=== PATIENT | female | born 1960 | race Caucasian/White ===

== ENCOUNTER 2020-02-16 10:12 | Outpatient (CLI) | payer OTHER, SELFPAY ==
[2020-02-16 10:29] LABS: Basophils Percent Auto 0.6 % (0.2-1.2); Eosinophils Absolute Auto 0.3 K/mm3 (0-0.3); Eosinophils Percent Auto 4.1 % (0-4.4); Hematocrit 41.4 % (37.0-47.0); Hemoglobin 13.3 g/dL (12.0-15.0); Immature Granulocyte Absolute 0.02 K/mm3 (0.00-0.031); Immature Granulocyte Percent A 0.3 % (0-0.5); Lymphocytes Absolute Auto 2.01 K/mm3 (0.9-3.2); Lymphocytes Percent Auto 31.6 % (18.3-44.2); Mean Corpuscular HGB Conc 32.1 g/dl (32-36); Mean Corpuscular Hemoglobin 28.1 pg (26-34); Mean Corpuscular Volume 87.3 fl (80-100); Mean Platelet Volume 8.4 fl (7.4-10.4); Monocytes Absolute Auto 0.5 K/mm3 (0.1-0.6); Monocytes Percent Auto 8.2 % (2.6-8.5); Neutrophils Absolute Auto 3.5 K/mm3 (1.3-6.7); Neutrophils Percent Auto 55.2 % (45.5-73.1); Platelet Count Result 164 k/mm3 (150-375); Red Blood Count 4.74 M/mm3 (4.2-5.4); Red Cell Distribution Width 14.7 % (11.5-14.5); White Blood Count 6.4 K/mm3 (4.5-10.0)
[2020-02-16 10:40] LABS: Blood Urea Nitrogen 14 mg/dL (7-17); Calcium 9.1 mg/dL (8.4-10.2); Carbon Dioxide 33 mmol/L (22-30); Chloride 100 mmol/L (98-107); Cholesterol 159 mg/dL (0-200); Estimated Glomerular Filt Rate > 60; Glucose 188 mg/dL (65-105); HDL Direct 31 mg/dL; Potassium 4.2 mmol/L (3.4-5.0); Sodium 138 mmol/L (137-145); Triglycerides 232 mg/dL (<150)
[2020-02-16 10:54] LABS: LDL Cholesterol Direct 86 mg/dL
== END 2020-02-16 10:13 | disposition home or self-care (01) ==
PROVIDERS: PCP Family Medicine; Visit Provider Family Medicine
DX: R60.0 Localized edema (principal); E78.2 Mixed hyperlipidemia; E66.01 Morbid (severe) obesity due to excess calories; Z68.43 Body mass index [BMI] 50.0-59.9, adult
CPT/HCPCS: 36415; 80048; 80061; 84443; 85025

== ENCOUNTER 2020-04-03 16:41 | Outpatient (CLI) | payer OTHER, SELFPAY ==
[2020-04-03 17:20] LABS: Hematocrit 41.9 % (37.0-47.0); Hemoglobin 13.7 g/dL (12.0-15.0); Mean Corpuscular HGB Conc 32.7 g/dl (32-36); Mean Corpuscular Hemoglobin 28.2 pg (26-34); Mean Corpuscular Volume 86.2 fl (80-100); Mean Platelet Volume 8.5 fl (7.4-10.4); Platelet Count Result 212 k/mm3 (150-375); Red Blood Count 4.86 M/mm3 (4.2-5.4); White Blood Count 6.6 K/mm3 (4.5-10.0)
[2020-04-03 17:32] LABS: Alanine Aminotransferase 42 U/L (4-35); Albumin Level 4.3 g/dL (3.5-5.1); Alkaline Phosphatase 91 U/L (38-126); Aspartate Amino Transferase 42 U/L (14-36); Bilirubin,Total 0.5 mg/dL (0.2-1.3); Blood Urea Nitrogen 14 mg/dL (7-17); Calcium 9.5 mg/dL (8.4-10.2); Carbon Dioxide 31 mmol/L (22-30); Chloride 98 mmol/L (98-107); Estimated Glomerular Filt Rate > 60; Glucose 113 mg/dL (65-105); Potassium 3.6 mmol/L (3.4-5.0); Sodium 137 mmol/L (137-145)
[2020-04-07 14:27] LABS: Quantiferon TB Plus, 1T Negative
[2020-04-07 14:28] LABS: NIL 0.03 IU/mL; TB1-NIL 0.01 IU/mL
[2020-04-07 14:30] LABS: TB2-NIL 0.01 IU/mL
== END 2020-04-03 16:42 | disposition home or self-care (01) ==
LOC: ANHLAB 16:44
PROVIDERS: PCP Family Medicine
DX: L40.0 Psoriasis vulgaris (principal)
CPT/HCPCS: 36415; 80053; 85027; 86480

== ENCOUNTER 2021-04-06 16:52 | Emergency (ER) | payer OTHER, SELFPAY ==
--- NOTE | ~2021-04-06 | XR_ITS ---
EXAMINATION: XR hip RT min 3V w AP pelvis, XR femur RT min 2V DATE: 04/06/2021 17:40 INDICATION: Posterior right femoral pain post fall. TECHNIQUE: 1. Anteroposterior view of the pelvis and anteroposterior, frog leg and cross-table lateral views of the right hip were obtained. 2. AP and lateral views of the right femur were obtained on overlapping proximal and distal images. COMPARISON: None. FINDINGS: Bone alignment is normal. No fracture. Mild polyarticular osteoarthritis at the right hip, right sacr oiliac joint and patellofemoral compartment of the right knee. Additional mild to moderate lower lumb ar predominant facet osteoarthritis. Left hip and sacroiliac joint spaces are normal. No right knee j oint effusion. Soft tissues are unremarkable. IMPRESSION: 1. No acute osseous abnormality at the pelvis, right hip or femur. 2. Polyarticular osteoarthritis, mild to moderate in the lumbar facet joints and mild at the right hi p, sacroiliac and patellofemoral articulations. Reviewed, dictated and finalized at location A. IMPRESSION: 1. No acute osseous abnormality at the pelvis, right hip or femur. 2. Polyarticular osteoarthritis, mild to moderate in the lumbar facet joints an d mild at the right hip, sacroiliac and patellofemoral articulations.
[2021-04-06 16:51] VITALS: BP 144/56; PULSE 74; RESP 18; TEMP 36.3; O2SAT 97
[2021-04-06] MEDS: HYDROcodone/acetaminophen (*CRX) 5-325 MG TABLET 1 TAB PO (17:43)
--- NOTE | 2021-04-06 18:07 | ED.GENADULT ---
HPI - General Adult General Chief complaint: Extremity Injury, Lower Stated complaint: groin/leg injury Time Seen by Provider: 04/06/21 17:10 Source: patient and RN notes reviewed Mode of arrival: ambulatory Limitations: no limitations History of Present Illness HPI narrative: Patient 60-year-old female who presents per EMS after having done the splits on a slick surface just prior to arrival patient notes that aching pain worse with activity and movement pain is localized to the posterior right thigh patient denies other injuries or complaints and on arrival is not distressed Related Data Home Medications Medication Instructions Recorded Confirmed risankizumab-rzaa [Skyrizi] mg SUBCUT 04/06/21 Allergies Allergy/AdvReac Type Severity Reaction Status Date / Time No Known Allergies Allergy Verified 04/06/21 16:59 Review of Systems Review of Systems: All systems reviewed & are unremarkable except as noted in HPI and below PMFSH Past Medical History Medical History (Updated 04/06/21 @ 18:11 by Bob Patel PA-C) Apnea Edema Mixed hyperlipidemia Obesity due to excess calories Psoriasis Subconjunctival hematoma Surgical History Surgical History (Updated 04/06/21 @ 18:09 by Bob Patel PA-C) Previous section Family History Family History Mother Hypertension Sibling Carcinoma of colon Family history of cardiovascular disease Father Family history of coronary artery disease Diabetes mellitus Acute myocardial infarction Other Cerebrovascular accident Social History Social History Smoking status: Former smoker Smoking end date: 09/22/10 Alcohol intake: current Exam Narrative: Exam Narrative: GENERAL: Well-appearing, well-nourished, and in no acute distress. HEAD: Normocephalic, atraumatic. EYES: PERRLA and EOMI. ENT: Nares clear, no rhinorrhea or epistaxis. Mucous membranes moist. CHEST: Clear to auscultation. No respiratory distress. No wheezes rales or rhonchi HEART: Regular rate and rhythm. No murmur heard. Normal peripheral pulses. ABDOMEN: Soft, nontender, nondistended EXTREMITIES: Normal range of motion. No edema. Tenderness posterior right thigh no deformity noted SKIN: Warm, dry, no rash. NEURO: No focal deficits. Alert and oriented x3. Cranial nerves II through XII grossly intact. Neurovascularly intact PSYCH: Normal mood and affect. Course Course Emergency Course: Patient evaluated the emergency department no concerning findings will be discharged home with outpatient follow-up felt appropriate for outpatient reevaluation provided with results of her x-ray imaging Vital Signs Vital signs: Vital Signs Temperature 97.4 F L 04/06/21 16:51 Pulse Rate 74 04/06/21 16:51 Respiratory Rate 18 04/06/21 16:51 Blood Pressure 144/56 H 04/06/21 16:51 Pulse Oximetry 97 04/06/21 16:51 Temperature 97.4 F L 04/06/21 16:51 Pulse Rate 74 04/06/21 16:51 Respiratory Rate 18 04/06/21 16:51 Blood Pressure 144/56 H 04/06/21 16:51 Pulse Oximetry 97 04/06/21 16:51 Medical Decision Making MDM Narrative Medical decision making narrative: Patients injury or pain is consistent with musculoskeletal etiology. No signs of neurological or vascular compromise on exam. Compartments and tisues are soft without signs of compartment syndrome. Pain is felt appropriate for further evaluation on an outpatient basis. Vital Signs Vital Signs: Vital Signs Temperature 97.4 F L 04/06/21 16:51 Pulse Rate 74 04/06/21 16:51 Respiratory Rate 18 04/06/21 16:51 Blood Pressure 144/56 H 04/06/21 16:51 Pulse Oximetry 97 04/06/21 16:51 Temperature 97.4 F L 04/06/21 16:51 Pulse Rate 74 04/06/21 16:51 Respiratory Rate 18 04/06/21 16:51 Blood Pressure 144/56 H 04/06/21 16:51 Pulse Oximetry 97 04/06/21 16:51 Imaging
[2021-04-06 18:32] VITALS: BP 135/60; PULSE 72; RESP 18; O2SAT 97
== END 2021-04-06 18:57 | disposition home or self-care (01) ==
PROVIDERS: Emergency Provider Emergency Medicine; PCP Family Medicine
DX: M79.651 Pain in right thigh (principal); R06.81 Apnea, not elsewhere classified; E78.2 Mixed hyperlipidemia; E66.09 Other obesity due to excess calories; Z68.43 Body mass index [BMI] 50.0-59.9, adult; L40.9 Psoriasis, unspecified; Z87.891 Personal history of nicotine dependence; W01.0XXA Fall on same level from slipping, tripping and stumbling without subsequent striking against object, initial encounter; M16.11 Unilateral primary osteoarthritis, right hip; M46.1 Sacroiliitis, not elsewhere classified; M17.11 Unilateral primary osteoarthritis, right knee
CPT/HCPCS: 73502; 73552; 99283; A9270

== ENCOUNTER 2021-04-14 10:17 | Outpatient (CLI) | payer OTHER, SELFPAY ==
--- NOTE | ~2021-04-14 | XR_ITS ---
XR lumbar spine 2-3V DATE: 04/14/2021 10:35 INDICATION: Ground-level fall one day ago. Right back pain radiating to leg TECHNIQUE: AP, lateral, coned lateral lumbosacral views COMPARISON: None FINDINGS: There is grade 1 anterolisthesis at L4-5, likely due to degenerative change at the apophyse al joints. There is mild degenerative disc disease of the lumbar spine. No fracture or bone destruction is evident. The lumbar pedicles are intact. The sacroiliac joints are intact. Surgical clips overlie the right upper quadrant, likely due to cholecystectomy. IMPRESSION: Multilevel mild degenerative disc disease of lumbar spine Grade 1 anterolisthesis at L4-5 due to degenerative change at the apophyseal joints Reviewed, dictated and finalized at location A. IMPRESSION: Multilevel mild degenerative disc disease of lumbar spine Grade 1 anterolisthesis at L4-5 due to degenerative change at the apophyseal south ints
== END 2021-04-14 10:18 | disposition home or self-care (01) ==
LOC: ANHIMG 10:19
PROVIDERS: PCP Family Medicine; Visit Provider Nurse Practitioner Family
DX: M54.5 Low back pain (principal); M51.36 Other intervertebral disc degeneration, lumbar region; M43.16 Spondylolisthesis, lumbar region
CPT/HCPCS: 72100

== ENCOUNTER 2021-08-08 10:30 | Outpatient (CLI) | payer OTHER, SELFPAY ==
[2021-08-08 11:08] LABS: Basophils Absolute Auto 0.1 K/mm3 (0.0-0.1); Basophils Percent Auto 0.8 % (0.2-1.2); Eosinophils Absolute Auto 0.8 K/mm3 (0-0.3); Eosinophils Percent Auto 9.9 % (0-4.4); Hematocrit 41.2 % (37.0-47.0); Hemoglobin 12.9 g/dL (12.0-15.0); Immature Granulocyte Absolute 0.02 K/mm3 (0.00-0.031); Immature Granulocyte Percent A 0.3 % (0-0.5); Lymphocytes Absolute Auto 2.31 K/mm3 (0.9-3.2); Lymphocytes Percent Auto 29.4 % (18.3-44.2); Mean Corpuscular HGB Conc 31.3 g/dl (32-36); Mean Corpuscular Hemoglobin 26.2 pg (26-34); Mean Corpuscular Volume 83.7 fl (80-100); Mean Platelet Volume 8.2 fl (7.4-10.4); Monocytes Absolute Auto 0.8 K/mm3 (0.1-0.6); Monocytes Percent Auto 9.8 % (2.6-8.5); Neutrophils Absolute Auto 3.9 K/mm3 (1.3-6.7); Neutrophils Percent Auto 49.8 % (45.5-73.1); Platelet Count Result 184 k/mm3 (150-375); Red Blood Count 4.92 M/mm3 (4.2-5.4); Red Cell Distribution Width 17.3 % (11.5-14.5); White Blood Count 7.9 K/mm3 (4.5-10.0)
[2021-08-08 11:21] LABS: Alanine Aminotransferase 20 U/L (4-35); Albumin Level 4.2 g/dL (3.5-5.1); Alkaline Phosphatase 80 U/L (38-126); Anion Gap 6 mmol/L (8-16); Aspartate Amino Transferase 21 U/L (14-36); Bilirubin,Total 0.5 mg/dL (0.2-1.3); Blood Urea Nitrogen 17 mg/dL (7-17); Calcium 9.5 mg/dL (8.4-10.2); Carbon Dioxide 29 mmol/L (22-30); Chloride 105 mmol/L (98-107); Cholesterol 133 mg/dL (0-200); Estimated Glomerular Filt Rate > 60; Glucose 147 mg/dL (65-110); HDL Direct 36 mg/dL; Potassium 4.4 mmol/L (3.4-5.0); Sodium 140 mmol/L (137-145); Triglycerides 194 mg/dL (<150)
[2021-08-08 11:32] LABS: LDL Cholesterol Direct 67 mg/dL
[2021-08-08 11:33] LABS: Creatinine Urine 86.1 mg/dL
[2021-08-08 11:47] LABS: Vitamin D 25 Hydroxy 15.1 ng/mL
[2021-08-08 12:34] LABS: Microalbumin Urine Random > 1140.0 mg/L (0-16.7)
[2021-08-23 15:41] LABS: NIL 0.02 IU/mL; Quantiferon TB Plus, 1T NEGATIVE
== END 2021-08-08 10:31 | disposition home or self-care (01) ==
LOC: ANHLAB 10:32
PROVIDERS: PCP Family Medicine; Referring Provider Dermatology; Visit Provider Nurse Practitioner Family
DX: E55.9 Vitamin D deficiency, unspecified (principal); E78.2 Mixed hyperlipidemia; E11.65 Type 2 diabetes mellitus with hyperglycemia; Z13.29 Encounter for screening for other suspected endocrine disorder; G47.33 Obstructive sleep apnea (adult) (pediatric); L40.0 Psoriasis vulgaris
CPT/HCPCS: 36415; 80053; 80061; 82043; 82306; 84443; 85025; 86480

== ENCOUNTER 2022-05-20 09:09 | Outpatient (CLI) | payer OTHER, SELFPAY ==
[2022-05-20 09:37] LABS: Hematocrit 41.4 % (37.0-47.0); Hemoglobin 12.6 g/dL (12.0-15.0); Mean Corpuscular HGB Conc 30.4 g/dl (32-36); Mean Platelet Volume 8.4 fl (7.4-10.4); Platelet Count Result 194 k/mm3 (150-375); Red Blood Count 5.05 M/mm3 (4.2-5.4); Red Cell Distribution Width 18.9 % (11.5-14.5); White Blood Count 7.2 K/mm3 (4.5-10.0)
[2022-05-20 09:48] LABS: Alanine Aminotransferase 19 U/L (6-35); Albumin Level 4.1 g/dL (3.5-5.1); Alkaline Phosphatase 88 U/L (38-126); Anion Gap 9 mmol/L (8-16); Aspartate Amino Transferase 22 U/L (14-36); Bilirubin,Total 0.6 mg/dL (0.2-1.3); Blood Urea Nitrogen 17 mg/dL (7-17); Calcium 9.2 mg/dL (8.4-10.2); Carbon Dioxide 30 mmol/L (22-30); Chloride 99 mmol/L (98-107); Cholesterol 135 mg/dL (0-200); Estimated Glomerular Filt Rate > 60; Glucose 132 mg/dL (65-110); HDL Direct 35 mg/dL; Potassium 4.2 mmol/L (3.4-5.0); Sodium 138 mmol/L (137-145); Triglycerides 198 mg/dL (<150)
[2022-05-20 09:59] LABS: LDL Cholesterol Direct 58 mg/dL
[2022-05-20 10:29] LABS: Vitamin D 25 Hydroxy 20.7 ng/mL
[2022-05-20 10:37] LABS: Creatinine Urine 154.2 mg/dL
[2022-05-20 12:32] LABS: Microalbumin Urine Random > 1140.0 mg/L (0-16.7)
== END 2022-05-20 09:10 | disposition home or self-care (01) ==
LOC: ANHLAB 09:11
PROVIDERS: PCP Family Medicine; Visit Provider Nurse Practitioner Family
DX: E55.9 Vitamin D deficiency, unspecified (principal); E11.65 Type 2 diabetes mellitus with hyperglycemia; Z13.29 Encounter for screening for other suspected endocrine disorder; E78.2 Mixed hyperlipidemia; G47.33 Obstructive sleep apnea (adult) (pediatric)
CPT/HCPCS: 36415; 80053; 80061; 82043; 82306; 84443; 85027

== ENCOUNTER 2022-10-10 14:07 | Outpatient (CLI) | payer OTHER, SELFPAY ==
[2022-10-10 15:14] LABS: Hematocrit 40.3 % (37.0-47.0); Hemoglobin 12.8 g/dL (12.0-15.0); Mean Corpuscular HGB Conc 31.8 g/dl (32-36); Mean Corpuscular Hemoglobin 27.4 pg (26-34); Mean Corpuscular Volume 86.3 fl (80-100); Mean Platelet Volume 8.7 fl (7.4-10.4); Platelet Count Result 230 k/mm3 (150-375); Red Blood Count 4.67 M/mm3 (4.2-5.4); Red Cell Distribution Width 16.9 % (11.5-14.5); White Blood Count 7.4 K/mm3 (4.5-10.0)
[2022-10-10 15:30] LABS: Anion Gap 6 mmol/L (8-16); Blood Urea Nitrogen 15 mg/dL (7-17); Carbon Dioxide 31 mmol/L (22-30); Chloride 103 mmol/L (98-107); Estimated Glomerular Filt Rate > 60; Glucose 98 mg/dL (65-110); Sodium 140 mmol/L (137-145)
[2022-10-10 15:44] LABS: Alanine Aminotransferase 22 U/L (6-35); Albumin Level 4.2 g/dL (3.5-5.1); Alkaline Phosphatase 88 U/L (38-126); Anion Gap 6 mmol/L (8-16); Aspartate Amino Transferase 22 U/L (14-36); Blood Urea Nitrogen 15 mg/dL (7-17); Carbon Dioxide 30 mmol/L (22-30); Chloride 104 mmol/L (98-107); Estimated Glomerular Filt Rate > 60; Glucose 98 mg/dL (65-110); Potassium 4.1 mmol/L (3.4-5.0); Sodium 140 mmol/L (137-145)
[2022-10-10 15:50] LABS: Bilirubin,Total 0.4 mg/dL (0.2-1.3)
[2022-10-14 11:43] LABS: NIL 0.02 IU/mL; Quantiferon TB Plus, 1T NEGATIVE (NEGATIVE); TB1-NIL 0.01 IU/mL; TB2-NIL 0.01 IU/mL
== END 2022-10-10 14:08 | disposition home or self-care (01) ==
LOC: ANHLAB 14:11
PROVIDERS: PCP Nurse Practitioner Family; Visit Provider Dermatology
DX: L40.0 Psoriasis vulgaris (principal); R25.2 Cramp and spasm; E55.9 Vitamin D deficiency, unspecified
CPT/HCPCS: 36415; 80048; 80053; 82306; 85027; 86480

== ENCOUNTER 2023-03-10 13:46 | Outpatient (CLI) | payer OTHER, SELFPAY ==
--- NOTE | 2023-03-10 | ECHO_ITS ---
Patient Info Name: Marie Jimenez Age: 62 years : 1960 Gender: Female Ht: 57 in Wt: 250 lbs BSA: 2.22 m2 HR: 72 bpm BP: 148 / 76 mmHg Technical Quality: Fair Exam Date: 03/10/2023 2:15 PM Exam Location: [facility] Patient Status: Outpatient Admit Date: 03/10/2023 Staff Ordering Physician: Alona Armstrong Technology Assistant: Ilsa Pichardo RDCS Attending Provider: Alona Armstrong Referring Physician: Patti ESPINO; Exam Type: CA echo doppler color flow Study Info Indications I10 - Essential (primary) hypertension Complete two-dimensional, color flow and Doppler transthoracic echocardiogram is performed. Summary 1. Complete two-dimensional, color flow and Doppler transthoracic echocardiogram is performed. 2. Left ventricular chamber dimension is normal. 3. Left ventricular systolic function is normal, estimated at 60-65%. 4. The left ventricular diastolic function is grade I diastolic dysfunction. 5. E/e' 12 is mildly elevated. 6. Global longitudinal strain is normal at -17.4%. 7. No pulmonary hypertension, estimated pulmonary arterial systolic pressure is 30 mmHg. Left Ventricle E/e' 12 is mildly elevated. Global longitudinal strain is normal at -17.4%. Left ventricular chamber dimension is normal. Left ventricular systolic function is normal, estimated at 60-65%. The left ventricular diastolic function is grade I diastolic dysfunction. Right Ventricle Right ventricular chamber dimension is normal. Right ventricular systolic function is normal. Left Atria Left atrial chamber dimension is normal. Right Atria Right atrial chamber dimension is normal. Aortic Valve The aortic valve is trileaflet. There is no aortic valve stenosis. There is no aortic valve regurgitation. Pulmonic Valve There is no pulmonic regurgitation. Mitral Valve There is no mitral valve stenosis. There is no mitral valve regurgitation. Tricuspid Valve There is no tricuspid valve regurgitation. No pulmonary hypertension, estimated pulmonary arterial systolic pressure is 30 mmHg. Pericardium/Pleural There is no pericardial effusion. Inferior Vena Cava Normal inferior vena cava with >50% collapse upon inspiration consistent with normal right atrial pressure, 5 mmHg. Aorta The aortic root size at the sinus of Valsalva is normal. Left Ventricular Outflow Tract Name Value Normal LVOT 2D LVOT Diameter 1.9 cm LVOT Doppler LVOT Peak Gradient 6 mmHg LVOT Mean Gradient 3 mmHg LVOT VTI 23 cm LVOT VTI/AV VTI Ratio 0.8 LVOT Stroke Volume 68 ml LVOT CO 4.4 l/min LVOT CI 2.0 l/min/m2 Pulmonic Valve Name Value Normal RVOT Doppler RVOT Peak Gradient 2 mmHg PV Doppler
== END 2023-03-10 13:47 | disposition home or self-care (01) ==
LOC: ANHCARD 13:48
PROVIDERS: PCP Nurse Practitioner Family; Visit Provider Nurse Practitioner Family
DX: E78.2 Mixed hyperlipidemia (principal); I10 Essential (primary) hypertension; R07.89 Other chest pain
CPT/HCPCS: 93306

== ENCOUNTER 2023-04-21 12:12 | Emergency (ER) | payer OTHER, SELFPAY ==
--- NOTE | ~2023-04-21 | XR_ITS ---
EXAMINATION: XR ankle LT min 3V DATE: 04/21/2023 12:55 INDICATION: Lateral left ankle pain TECHNIQUE: Anteroposterior, oblique, mortise, and lateral views of the left ankle were obtained. COMPARISON: None. FINDINGS: Alignment is normal. No fracture. Joint spaces are well maintained. Moderate-sized Achilles calcanea l spur. No ankle joint effusion. Mild diffuse soft tissue swelling with subcutaneous edema about the distal calf, ankle and over the dorsum of the foot. IMPRESSION: 1. No acute osseous abnormality. Reviewed, dictated and finalized at location B.
[2023-04-21 12:35] VITALS: BP 137/72; PULSE 85; RESP 16; TEMP 36.2; O2SAT 97
--- NOTE | 2023-04-21 12:43 | ED.GENADULT ---
HPI - General Adult General Chief complaint: Extremity Injury, Lower Stated complaint: Left foot injury Time Seen by Provider: 04/21/23 12:43 Source: patient, RN notes reviewed and old records reviewed Mode of arrival: ambulatory (placed in wheelchair on arrival) Limitations: no limitations History of Present Illness HPI narrative: . 63 year old female presents to [facility] for rehabilitation care with 3-4 days of increased discomfort to the lateral posterior ankle behind her calcaneus bone with inability to apply kary to heel. Patient reports no known injury to her left lateral ankle, reports chronic swelling to her feet and ankles no increase in swelling noted. Patient reports that she has been walking on her toes of her left foot is unable to bear weight to posterior aspect of left foot without extreme discomfort. Patient reports no pain at rest but with movement of ankle and attempting to apply pressure to posterior foot pain is 9/10. Patient reports that she has been taking Ibuprofen for her discomfort. MD complaint: left posterior lateral ankle pain Onset (ago): day(s) (3-4 days) Location: left and lower extremity (posterior lateral ankle) Pain Consistency: intermittent and other (related to activity and movement of left ankle) Treatments prior to arrival: NSAID Related Data Home Medications Medication Instructions Recorded Confirmed risankizumab-rzaa 150 mg/mL 150 mg subcut [id number] 04/21/23 04/21/23 subcutaneous pen injector (Skyrizi) Allergies Allergy/AdvReac Type Severity Reaction Status Date / Time No Known Allergies Allergy Verified 04/21/23 12:31 Review of Systems Review of Systems: CONSTITUTIONAL: Denies fever, chills, or sweats. EYES: Denies visual changes, redness, or discharge. ENT: Denies rhinorrhea, congestion, sore throat, or otalgia. CARDIOVASCULAR: Denies chest pain, palpitations, positive for chronic edema to bilateral feet. RESPIRATORY: Denies cough or dyspnea. GASTROINTESTINAL: Denies abdominal pain, nausea, vomiting, or diarrhea. GENITOURINARY: Denies dysuria or hematuria. SKIN: Denies rash or itching.positive for left posterior MUSCULOSKELETAL: Denies back pain, positive for left lateral posterior ankle pain increases with movement and attempting to apply weight on posterior foot. or myalgia. NEUROLOGIC: Denies headache, numbness, or weakness. PSYCHIATRIC:Positive for history of anxiety or depression. All systems reviewed & are unremarkable except as noted in HPI and below PMFSH Past Medical History Medical History Abnormal CT of the abdomen Acute bronchitis due to other specified organisms Acute sinusitis, unspecified Acute suppurative otitis media of right ear without spontaneous rupture of tympanic membrane Acute upper respiratory infection, unspecified Apnea Bilateral primary osteoarthritis of knee Bilateral swelling of feet BMI 50.0-59.9, adult Body mass index (BMI) of 50-59.9 in adult (07/10/17) Candidiasis of skin Dietary counseling and surveillance (02/24/18) Edema Edema of both feet Elevated fasting glucose Elevated sed rate Encounter for screening for respiratory tuberculosis (09/12/15) Encounter for surgical aftercare following surgery of digestive system Hyperglycemia Memory loss Mixed hyperlipidemia Morbid obesity due to excess calories Obesity due to excess calories Orthopnea Other psoriatic arthropathy Post-nasal drainage Prediabetes Psoriasis Routine physical examination Screening for thyroid disorder Sleep trouble Sore throat Stress Subconjunctival hematoma Symptomatic cholelithiasis Upper abdominal mass Vitamin D deficiency Surgical History Surgical History H/O gynecological procedure diagnostic hysteroscopy; uterine curetting; hysteroscopic polyectomy History of tubal ligation laparoscopic tubal ligation; NovaSure endometrial ablation Previous back surgery fatty t
== END 2023-04-21 13:40 | disposition home or self-care (01) ==
PROVIDERS: Emergency Provider Registered Nurse; PCP Family Medicine
DX: M77.32 Calcaneal spur, left foot (principal); M25.572 Pain in left ankle and joints of left foot; Z87.891 Personal history of nicotine dependence; E78.2 Mixed hyperlipidemia; E66.01 Morbid (severe) obesity due to excess calories; Z68.43 Body mass index [BMI] 50.0-59.9, adult
CPT/HCPCS: 73610; 99213; G0463

== ENCOUNTER 2023-05-02 08:00 | Outpatient (CLI) | payer OTHER, SELFPAY ==
--- NOTE | ~2023-05-02 | MM_ITS ---
EXAMINATION: MM screening kelsi BI w annette HISTORY: Screening mammogram TECHNIQUE: Craniocaudal and mediolateral oblique 3-D tomosynthesis images were obtained and synthetic 2-D images were generated. CAD analysis was submitted and interpreted. COMPARISON: 11/30/2013, 09/28/2010 BREAST PARENCHYMAL COMPOSITION: The breasts are almost entirely fatty. FINDINGS: No suspicious mass, calcification, or architectural distortion are identified in either glenn ast to suggest malignancy. There has been no suspicious interval change. IMPRESSION: 1. No mammographic evidence of malignancy. 2. Recommend routine screening mammography in one year. BI-RADS Category 1: Negative Reviewed, dictated and finalized at location A.
== END 2023-05-02 08:01 | disposition home or self-care (01) ==
LOC: ANHIMG 08:07
PROVIDERS: PCP Obstetrics & Gynecology; Visit Provider Obstetrics & Gynecology
DX: Z12.31 Encounter for screening mammogram for malignant neoplasm of breast (principal)
CPT/HCPCS: 77063; 77067

== ENCOUNTER 2023-11-18 08:17 | Outpatient (CLI) | payer OTHER, SELFPAY ==
[2023-11-18 08:51] LABS: Hematocrit 41.7 % (37.0-47.0); Hemoglobin 12.3 g/dL (12.0-15.0); Mean Corpuscular HGB Conc 29.5 g/dl (32-36); Mean Corpuscular Hemoglobin 24.1 pg (26-34); Mean Corpuscular Volume 81.6 fl (80-100); Mean Platelet Volume 8.2 fl (7.4-10.4); Platelet Count Result 231 k/mm3 (150-375); Red Blood Count 5.11 M/mm3 (4.2-5.4); Red Cell Distribution Width 18.9 % (11.5-14.5); White Blood Count 5.9 K/mm3 (4.5-10.0)
[2023-11-18 09:00] LABS: Alanine Aminotransferase 26 U/L (6-35); Alkaline Phosphatase 69 U/L (38-126); Anion Gap 4 mmol/L (8-16); Aspartate Amino Transferase 27 U/L (14-36); Bilirubin,Total 0.5 mg/dL (0.2-1.3); Blood Urea Nitrogen 16 mg/dL (7-17); Calcium 9.4 mg/dL (8.4-10.2); Carbon Dioxide 29 mmol/L (22-30); Chloride 105 mmol/L (98-107); Cholesterol 135 mg/dL (0-200); Estimated Glomerular Filt Rate > 60; Glucose 108 mg/dL (65-110); HDL Direct 39 mg/dL; Potassium 4.3 mmol/L (3.4-5.0); Sodium 138 mmol/L (137-145); Triglycerides 161 mg/dL (<150)
[2023-11-18 09:13] LABS: LDL Cholesterol Direct 66 mg/dL
[2023-11-18 09:34] LABS: Vitamin D 25 Hydroxy 53.3 ng/mL
== END 2023-11-18 08:18 | disposition home or self-care (01) ==
LOC: ANHLAB 08:20
PROVIDERS: PCP Family Medicine; Referring Provider Nurse Practitioner Family; Visit Provider Internal Medicine Cardiovascular Disease
DX: E55.9 Vitamin D deficiency, unspecified (principal); E78.2 Mixed hyperlipidemia; F32.A Depression, unspecified; I10 Essential (primary) hypertension
CPT/HCPCS: 36415; 80053; 80061; 82306; 84443; 85027

== ENCOUNTER 2023-11-28 07:57 | Outpatient (CLI) | payer OTHER, SELFPAY ==
[2023-11-28 10:58] LABS: Iron 65 ug/dL (37-170)
[2023-11-28 11:27] LABS: Percent Iron Saturation 25 % (20-50)
== END 2023-11-28 07:58 | disposition home or self-care (01) ==
LOC: ANHLAB 07:58
PROVIDERS: PCP Family Medicine; Visit Provider Nurse Practitioner Family
DX: D64.9 Anemia, unspecified (principal)
CPT/HCPCS: 36415; 83540; 83550

== ENCOUNTER 2024-06-24 14:06 | Outpatient (CLI) | payer OTHER, SELFPAY ==
[2024-06-24 14:31] LABS: Hematocrit 45.2 % (37.0-47.0); Hemoglobin 14.8 g/dL (12.0-15.0); Mean Corpuscular HGB Conc 32.7 g/dl (32-36); Mean Corpuscular Hemoglobin 28.8 pg (26-34); Mean Corpuscular Volume 88.1 fl (80-100); Mean Platelet Volume 8.3 fl (7.4-10.4); Platelet Count Result 183 k/mm3 (150-375); Red Blood Count 5.13 M/mm3 (4.2-5.4); Red Cell Distribution Width 15.2 % (11.5-14.5); White Blood Count 7.1 K/mm3 (4.5-10.0)
[2024-06-24 15:10] LABS: Add Urine Microscopic? YES; Appearance Urine Cloudy (Clear); Bacteria Urine None Seen /hpf; Bilirubin Urine Negative (Negative); Blood Urine 3+ (Negative); Color Urine Yellow (Yellow); Glucose Urine UA Negative (Negative); Ketones Urine Negative (Negative); Leukocyte Esterase Ur 2+ LEU/UL (Negative); Mucus Urine Present /lpf; Need Manual Microscopic Reviewed; Nitrate Urine Negative (Negative); Non Pathogenic Casts 0-2; Protein Urine 2+ mg/dL (Negative); RBC Urine >100 /hpf (0-2); Specific Grav Ur 1.018 (1.001-1.035); Squamous Epithelial Cell Urine None Seen /hpf (Few); WBC Urine >100 /hpf (0-3); pH Urine 5.5 (5.0-9.0)
[2024-06-24 15:20] LABS: Thyroid Stimulating Hormone 0.042 uIU/mL (0.465-4.680)
[2024-06-24 15:33] LABS: Iron 59 ug/dL (37-170)
[2024-06-24 15:42] LABS: Percent Iron Saturation 25 % (20-50); Vitamin B12 > 1000.0 pg/mL (239-931)
[2024-06-24 16:55] LABS: Creatinine Urine 118.3 mg/dL
[2024-06-24 17:19] LABS: MALB Creatinine Ratio 278.7 mg/g (0-30); Microalbumin Urine Random 329.7 mg/L (0-16.7)
[2024-06-24 18:12] LABS: Vitamin D 25 Hydroxy 72.2 ng/mL
== END 2024-06-24 14:07 | disposition home or self-care (01) ==
LOC: ANHLAB 14:13
PROVIDERS: PCP Family Medicine; Visit Provider Nurse Practitioner Family
DX: Z13.29 Encounter for screening for other suspected endocrine disorder (principal); E11.9 Type 2 diabetes mellitus without complications; E55.9 Vitamin D deficiency, unspecified; D64.9 Anemia, unspecified; R39.9 Unspecified symptoms and signs involving the genitourinary system
CPT/HCPCS: 36415; 81001; 82043; 82306; 82607; 83540; 83550; 84443; 85027; 87077; 87086; 87186

== ENCOUNTER 2024-06-30 12:26 | Outpatient (CLI) | payer OTHER, SELFPAY ==
[2024-06-30 13:30] LABS: Free T4 Free Thyroxine 1.38 ng/mL (0.78-2.19)
[2024-06-30 13:41] LABS: Thyroid Stimulating Hormone 0.344 uIU/mL (0.465-4.680)
[2024-07-06 09:48] LABS: Thyroid Peroxidase Antibodies 3 IU/mL (<9)
== END 2024-06-30 12:27 | disposition home or self-care (01) ==
LOC: ANHLAB 12:29
PROVIDERS: PCP Family Medicine; Visit Provider Nurse Practitioner Family
DX: R79.89 Other specified abnormal findings of blood chemistry (principal)
CPT/HCPCS: 36415; 84439; 84443; 84480; 86376

== ENCOUNTER 2024-09-06 10:49 | Emergency (ER) | payer OTHER, SELFPAY ==
[2024-09-06 11:18] VITALS: BP 143/70; PULSE 75; RESP 16; TEMP 36.3; O2SAT 96
--- NOTE | 2024-09-06 11:58 | ED.URI ---
HPI - URI/Sore Throat General Chief Complaint: Upper Respiratory Infection Stated Complaint: Sinus Infection Symptoms Time Seen by Provider: 09/06/24 11:59 Source: patient Mode of arrival: ambulatory Limitations: no limitations History of Present Illness HPI Narrative: 64-year-old female presents with complaint of sinus congestion, postnasal drainage, sinus pressure, sinus headaches for 9 days. Reports dry cough past few days. Taking Mucinex cold and Sinus to treat her symptoms. Afebrile. No chest pain or shortness of breath. All systems reviewed and negative except as noted above. Related Data Home Medications ?Medication ?Instructions ?Recorded ?Confirmed ?Last Taken ?Type risankizumab-rzaa 150 mg/mL 150 mg subcut [id number] 04/21/23 09/06/24 Unknown History subcutaneous pen injector (Skyrizi) B-complex with vitamin C 1 cap PO DAILY 06/06/23 09/06/24 09/06/24 History Bacillus coagulans 10 billion cell 1 cell PO .QD 11/17/23 09/06/24 Unknown History capsule,delayed release (Probiotic (B. coagulans)) cholecalciferol (vitamin D3) 50 125 mcg PO DAILY 07/14/24 09/06/24 Unknown History mcg (2,000 unit) capsule Allergies Allergy/AdvReac Type Severity Reaction Status Date / Time No Known Allergies Allergy Verified 07/14/24 09:16 Review of Systems Review of Systems: CONSTITUTIONAL: Denies fever, chills, or sweats. EYES: Denies visual changes, redness, or discharge. ENT: Reports rhinorrhea, congestion, postnasal drainage, sinus pressure, sinus headaches. Denies sore throat, or otalgia. CARDIOVASCULAR: Denies chest pain, palpitations, or edema. RESPIRATORY: Reports cough. Denies dyspnea. GASTROINTESTINAL: Denies abdominal pain, nausea, vomiting, or diarrhea. GENITOURINARY: Denies dysuria or hematuria. SKIN: Denies rash or itching. MUSCULOSKELETAL: Denies back pain, joint pain, or myalgia. NEUROLOGIC: Denies headache, numbness, or weakness. PSYCHIATRIC: Denies anxiety or depression. All other systems reviewed are negative, except as documented in HPI. FOR[facility] Past Medical History Medical History (Updated 09/06/24 @ 12:04 by Carmencita Rousseau NP) Lumbar paraspinal muscle spasm Bilateral primary osteoarthritis of knee Abnormal CT of the abdomen Acute bronchitis due to other specified organisms Acute sinusitis, unspecified Acute suppurative otitis media of right ear without spontaneous rupture of tympanic membrane Acute upper respiratory infection, unspecified Bilateral swelling of feet Body mass index (BMI) of 50-59.9 in adult (07/10/17) Candidiasis of skin Dietary counseling and surveillance (02/24/18) Edema of both feet Elevated fasting glucose Elevated sed rate Encounter for screening for respiratory tuberculosis (09/12/15) Encounter for surgical aftercare following surgery of digestive system Hyperglycemia Memory loss Morbid obesity due to excess calories Orthopnea Other psoriatic arthropathy Post-nasal drainage Prediabetes Routine physical examination Screening for thyroid disorder Sleep trouble Sore throat Stress Symptomatic cholelithiasis Upper abdominal mass Vitamin D deficiency Subconjunctival hematoma Apnea Psoriasis Obesity due to excess calories Mixed hyperlipidemia Edema Surgical History Surgical History Previous back surgery fatty tumors removed from back H/O gynecological procedure diagnostic hysteroscopy; uterine curetting; hysteroscopic polyectomy History of tubal ligation laparoscopic tubal ligation; NovaSure endometrial ablation Previous section Family History Family History Mother Hypertension Staph infection Sibling Carcinoma of colon Family history of cardiovascular disease Heart disease Pacemaker Father Family history of coronary artery disease Diabetes mellitus Acute myocardial infarction Other Cerebrovascular accident Social History Social History Smoking status: Former smoker Tobacco type: cigarettes Second hand tobacco smoke exposure: Yes Alcohol intake: never Substance use: never Substance use type: does not use Do You Feel Safe in your Home?: Yes Lack of Transportation: No Lack of Food: Never True Current Housing: I Have Housing Concerned About Future Housing: No Difficulty Paying Gas/Electric Bills: No Difficulty Paying for Meds: No Currently Unemployed: No Education: High School Diploma/GED Difficulty w/ Childcare or Family Care: No Living arrangements: alone Occupation/Education: occupation 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 There is no relevant family history pertinent to the presenting complaint. Exam Narrative: GENERAL: This is a well-nourished, well-developed patient, in no apparent distress. HEAD: normocephalic, atraumatic. EYES: PERRL. Sclera clear/white. Vision is grossly intact. EARS: External ears normal, auditory canals clear and without drainage, fluid bilateral TMs without erythema or perforation. Hearing grossly intact. NOSE: External nose normal with purulent nasal drainage, erythema and swelling to bilateral nares, moderate congestion. Maxillary sinus tenderness on palpation THROAT: Mucous membranes moist, erythema postnasal drainage. No swelling or exudates. NECK: Neck supple, non-tender without lymphadenopathy, masses or thyromegaly. CARDIOVASCULAR: Regular rate and rhythm without murmurs, gallops, or rubs. RESPIRATORY: Clear to auscultation. Breath sounds equal bilaterally. No wheezes, rales, or rhonchi. SKIN: warm, Dry, intact with no suspicious lesions or rash, good texture and turgor. NEURO: awake, alert, and oriented to person, place and time. There were no obvious focal neurologic abnormalities. EXTREMITIES: No joint tenderness, effusion, or edema noted. Course Course Level of Care: Express Care Visit Vital Signs Vital signs: Vital Signs Temperature 36.3 C L 09/06/24 11:18 Pulse Rate 75 09/06/24 11:18 Respiratory Rate 16 09/06/24 11:18 Blood Pressure 143/70 H 09/06/24 11:18 Pulse Oximetry 96 09/06/24 11:18 Oxygen Delivery Room Air 09/06/24 11:18 Temperature 36.3 C L 09/06/24 11:18 Pulse Rate 75 09/06/24 11:18 Respiratory Rate 16 09/06/24 11:18 Blood Pressure 143/70 H 09/06/24 11:18 Pulse Oximetry 96 09/06/24 11:18 Oxygen Delivery Room Air 09/06/24 11:18 Reviewed MDM - URI/Sore Throat MDM Narrative Medical decision making narrative: Will treat patient for bacterial sinusitis due to duration of symptoms and exam findings. Patient is aware of diagnosis, understands and agrees to treatment plan. Anticipatory guidance given. Patient agrees to follow-up as directed and is aware of reasons to seek care at the emergency department. Portions of this record may have been created with voice recognition software Differential Diagnosis Differential diagnosis: Likely upper respiratory infection, sinusitis and viral infection Discharge Plan Discharge Clinical Impression: Acute bacterial sinusitis Patient Disposition: Home, Self-Care Condition: Stable Instructions: Antibiotic Form, Sinusitis (ED) Additional Instructions: Take medications as prescribed. Continue taking [id number] Mucinex as directed on packaging. Take Tylenol every 6-8 hours as needed for pain and fever. Drink at least 64 oz of water a day. Place cool mist humidifier in bedroom where you sleep. Follow-up with your primary care physician if symptoms are not improving. Patient Language: Malagasy Prescriptions: New benzonatate 200 mg capsule 200 mg PO TID PRN (Reason: cough) Qty: 20 0RF fluticasone propionate [Children's Flonase Allergy Rlf] 50 mcg/actuation spray,suspension 1 spray intranasal BID Qty: 16 0RF Rx Instructions: administer into each nostril amoxicillin-pot clavulanate 875-125 mg tablet 1 tablet PO Q12H 7 Days Qty: 14 0RF No Action Skyrizi 150 mg/mL pen injector 150 mg SUBCUT [id number] B-complex with vitamin C Capsule 1 cap PO DAILY Probiotic (B. coagulans) 10 billion cell capsule,delayed release(DR/EC) 1 cell PO .QD (DME) Dexcom G7 Photonics Technician Misc See Rx Instructions .Route Qty: 1 0RF Rx Instructions: As directed clobetasol 0.05 % ointment 1 applic topical BID Qty: 60 4RF Rx Instructions: apply topically BID for 2-4 weeks, then continue using 2-4x/month cholecalciferol (vitamin D3) 50 mcg (2,000 unit) capsule 125 mcg PO DAILY tizanidine 4 mg tablet 4 mg PO QHS PRN (Reason: muscle spasticity) Qty: 20 1RF rosuvastatin [Crestor] 20 mg tablet 20 mg PO DAILY Qty: 90 3RF (DME) Dexcom G7 Sensor Device See Rx Instructions .ROUTE .COMPLEX Qty: 1 5RF Dose Instruction: USE DIRECTED Rx Instructions: USE DIRECTED metformin 500 mg tablet 500 mg PO DAILY Qty: 90 1RF lisinopril 2.5 mg tablet 2.5 mg PO DAILY Qty: 90 1RF tirzepatide 7.5 mg/0.5 mL pen injector 7.5 mg subcut WEEKLY Qty: 6 0RF escitalopram oxalate [Lexapro] 10 mg tablet 10 mg PO DAILY Qty: 90 0RF bupropion HCl 300 mg tablet extended release 24 hr 300 mg PO QAM Qty: 90 1RF Follow-up/Referrals: Be Guillen MD [Primary Care Provider] - Time of Disposition: 12:04
== END 2024-09-06 12:09 | disposition home or self-care (01) ==
PROVIDERS: Emergency Provider Nurse Practitioner Family; PCP Family Medicine
DX: J01.90 Acute sinusitis, unspecified (principal); Z87.891 Personal history of nicotine dependence; E66.01 Morbid (severe) obesity due to excess calories; R73.03 Prediabetes; E55.9 Vitamin D deficiency, unspecified; E78.2 Mixed hyperlipidemia
CPT/HCPCS: 99213; G0463

== ENCOUNTER 2024-11-29 10:19 | Emergency (ER) | payer OTHER, SELFPAY ==
[2024-11-29 10:32] VITALS: BP 141/64; PULSE 66; RESP 18; TEMP 36.5; O2SAT 98
--- NOTE | 2024-11-29 11:00 | ED.URI ---
HPI - URI/Sore Throat General Chief Complaint: Upper Respiratory Infection Stated Complaint: Cough/congestion Source: patient Mode of arrival: ambulatory Limitations: no limitations History of Present Illness HPI Narrative: 64-year-old female with hx DM and HTN presented for complaint of nasal congestion and sinus pressure with headache. Also reports burning in chest when coughing, ear pressure and fatigue. Symptom onset 2 weeks. Taking occasional Mucinex and ibuprofen. Denies sore throat, shortness of breath, wheezing nausea, vomiting, diarrhea or lethargy. Related Data Home Medications ?Medication ?Instructions ?Recorded ?Confirmed ?Last Taken ?Type risankizumab-rzaa 150 mg/mL 150 mg subcut [id number] 04/21/23 10/21/24 Unknown History subcutaneous pen injector (Skyrizi) B-complex with vitamin C 1 cap PO DAILY 06/06/23 10/21/24 09/06/24 History Bacillus coagulans 10 billion cell 1 cell PO .QD 11/17/23 10/21/24 Unknown History capsule,delayed release (Probiotic (B. coagulans)) cholecalciferol (vitamin D3) 50 125 mcg PO DAILY 07/14/24 10/21/24 Unknown History mcg (2,000 unit) capsule Allergies Allergy/AdvReac Type Severity Reaction Status Date / Time No Known Allergies Allergy Verified 11/29/24 10:35 Review of Systems Review of Systems: per HPI All systems reviewed & are unremarkable except as noted in HPI and below PMFSH Past Medical History Medical History Lumbar paraspinal muscle spasm Bilateral primary osteoarthritis of knee Abnormal CT of the abdomen Acute bronchitis due to other specified organisms Acute sinusitis, unspecified Acute suppurative otitis media of right ear without spontaneous rupture of tympanic membrane Acute upper respiratory infection, unspecified Bilateral swelling of feet Body mass index (BMI) of 50-59.9 in adult (07/10/17) Candidiasis of skin Dietary counseling and surveillance (02/24/18) Edema of both feet Elevated fasting glucose Elevated sed rate Encounter for screening for respiratory tuberculosis (09/12/15) Encounter for surgical aftercare following surgery of digestive system Hyperglycemia Memory loss Morbid obesity due to excess calories Orthopnea Other psoriatic arthropathy Post-nasal drainage Prediabetes Routine physical examination Screening for thyroid disorder Sleep trouble Sore throat Stress Symptomatic cholelithiasis Upper abdominal mass Vitamin D deficiency Subconjunctival hematoma Apnea Psoriasis Obesity due to excess calories Mixed hyperlipidemia Edema Surgical History Surgical History Previous back surgery fatty tumors removed from back H/O gynecological procedure diagnostic hysteroscopy; uterine curetting; hysteroscopic polyectomy History of tubal ligation laparoscopic tubal ligation; NovaSure endometrial ablation Previous section Family History Family History Mother Hypertension Staph infection Sibling Carcinoma of colon Family history of cardiovascular disease Heart disease Pacemaker Father Family history of coronary artery disease Diabetes mellitus Acute myocardial infarction Other Cerebrovascular accident Social History Social History Smoking status: Former smoker Tobacco type: cigarettes Second hand tobacco smoke exposure: Yes Alcohol intake: never Substance use: never Substance use type: does not use Do You Feel Safe in your Home?: Yes Lack of Transportation: No Lack of Food: Never True Current Housing: I Have Housing Concerned About Future Housing: No Difficulty Paying Gas/Electric Bills: No Difficulty Paying for Meds: No Currently Unemployed: No Education: High School Diploma/GED Difficulty w/ Childcare or Family Care: No Living arrangements: alone Occupation/Education: occupation 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 Please see nursing chart for further information. There is no relevant family history pertinent to the presenting complaint Exam Narrative: GENERAL: Mildly ill-appearing, in no acute distress. EYES: EOMI. No redness or drainage. Conjunctivae normal. ENT: Mucous membranes pink and moist. Congestion and rhinorrhea. TMs normal bilaterally. Throat normal. Uvula midline. NECK: Normal AROM. Supple. CHEST: No respiratory distress. Lungs clear to all calix. Frequent moist nonproductive cough HEART: Regular rate and rhythm. No murmur appreciated. SKIN: Warm, dry, no rash. Capillary refill normal. Normal skin turgor. NEURO: Alert and oriented x3. Gait steady. PSYCH: Normal affect. Course Course Emergency Course: Patient is aware of diagnosis, understands and agrees to treatment plan. Anticipatory guidance given. Patient agrees to follow-up as directed and is aware of reasons to seek care at the emergency department. Portions of this record may have been created with voice recognition software Level of Care: Express Care Visit Vital Signs Vital signs: Vital Signs Oxygen Delivery Room Air 11/29/24 10:31 Temperature 97.7 F 11/29/24 10:32 Pulse Rate 66 11/29/24 10:32 Respiratory Rate 18 11/29/24 10:32 Blood Pressure 141/64 H 11/29/24 10:32 Pulse Oximetry 98 11/29/24 10:32 Oxygen Delivery Room Air 11/29/24 10:32 MDM - URI/Sore Throat MDM Narrative Medical decision making narrative: Discussed physical exam findings consistent with bronchitis/sinus infection. Advised supportive measures and signs/symptoms to go to the ER. Pt is appropriate for outpt treatment and f/u. Differential Diagnosis Differential diagnosis: Likely upper respiratory infection, viral infection, bronchitis and pharyngitis Discharge Plan Discharge Clinical Impression: Bronchitis Patient Disposition: Home, Self-Care Condition: Stable Instructions: Antibiotic Form, Acute Bronchitis (ED) Additional Instructions: Acute bronchitis can be contagious because it is usually caused by infection with a virus or bacteria. It is usually for a few days but you can be contagious for up to one week. Take medication as directed Recommendations: Flonase spray and Zyrtec (or Claritin/Corina) over the counter Cough syrup may cause drowsiness; avoid driving or take it at night time. Tylenol 1000mg every 8 hours as needed for pain Symptomatic treatment includes: rest, fluids, and increase humidity of the air at home. Follow up with your primary care provider as needed in 1 week Go to the ER for worsening symptoms or concerns Patient Language: New Zealander Prescriptions: New benzonatate 200 mg capsule 200 mg PO TID PRN (Reason: cough) Qty: 20 0RF methylprednisolone [Medrol (Moises)] 4 mg tablets,dose pack See Rx Instructions .ROUTE .COMPLEX Qty: 21 0RF Rx Instructions: orally per package directions amoxicillin-pot clavulanate 875-125 mg tablet 1 tablet PO Q12H 7 Days Qty: 14 0RF No Action Skyrizi 150 mg/mL pen injector 150 mg SUBCUT [id number] benzonatate 200 mg capsule 200 mg PO TID PRN (Reason: cough) Qty: 20 0RF fluticasone propionate [Children's Flonase Allergy Rlf] 50 mcg/actuation spray,suspension 1 spray intranasal BID Qty: 16 0RF Rx Instructions: administer into each nostril amoxicillin-pot clavulanate 875-125 mg tablet 1 tablet PO Q12H 7 Days Qty: 14 0RF B-complex with vitamin C Capsule 1 cap PO DAILY Probiotic (B. coagulans) 10 billion cell capsule,delayed release(DR/EC) 1 cell PO .QD (DME) Dexcom G7 Enrobing Machine Feeder Misc See Rx Instructions .Route Qty: 1 0RF Rx Instructions: As directed cholecalciferol (vitamin D3) 50 mcg (2,000 unit) capsule 125 mcg PO DAILY rosuvastatin [Crestor] 20 mg tablet 20 mg PO DAILY Qty: 90 3RF (DME) Dexcom G7 Sensor Device See Rx Instructions .ROUTE .COMPLEX Qty: 1 5RF Dose Instruction: USE DIRECTED Rx Instructions: USE DIRECTED metformin 500 mg tablet 500 mg PO DAILY Qty: 90 1RF lisinopril 2.5 mg tablet 2.5 mg PO DAILY Qty: 90 1RF bupropion HCl 300 mg tablet extended release 24 hr 300 mg PO QAM Qty: 90 1RF tirzepatide 7.5 mg/0.5 mL pen injector 7.5 mg subcut WEEKLY Qty: 6 0RF escitalopram oxalate [Lexapro] 10 mg tablet 10 mg PO DAILY Qty: 90 0RF Follow-up/Referrals: Be Guillen MD [Primary Care Provider] - Time of Disposition: 11:09
== END 2024-11-29 11:12 | disposition home or self-care (01) ==
PROVIDERS: Emergency Provider Nurse Practitioner Family; PCP Family Medicine
DX: J40 Bronchitis, not specified as acute or chronic (principal); Z87.891 Personal history of nicotine dependence; E66.01 Morbid (severe) obesity due to excess calories; Z68.42 Body mass index [BMI] 45.0-49.9, adult; R73.03 Prediabetes; L40.59 Other psoriatic arthropathy; L40.9 Psoriasis, unspecified; E78.2 Mixed hyperlipidemia; E55.9 Vitamin D deficiency, unspecified; R73.01 Impaired fasting glucose
CPT/HCPCS: 99213; G0463

== ENCOUNTER 2025-03-16 13:20 | Outpatient (CLI) | payer OTHER, SELFPAY ==
[2025-03-21 16:24] LABS: NIL 0.04 IU/mL; Quantiferon TB Plus, 1T NEGATIVE (NEGATIVE)
== END 2025-03-16 13:21 | disposition home or self-care (01) ==
LOC: ANHLAB 13:24
PROVIDERS: PCP Family Medicine; Visit Provider Dermatology
DX: L40.0 Psoriasis vulgaris (principal)
CPT/HCPCS: 36415; 86480

== ENCOUNTER 2025-07-06 08:59 | Outpatient (CLI) | payer OTHER, SELFPAY ==
[2025-07-06 09:31] LABS: Hematocrit 42.5 % (37.0-47.0); Hemoglobin 13.5 g/dL (12.0-15.0); Mean Corpuscular HGB Conc 31.8 g/dl (32-36); Mean Corpuscular Hemoglobin 28.0 pg (26-34); Mean Corpuscular Volume 88.2 fl (80-100); Platelet Count Result 158 k/mm3 (150-375); Red Blood Count 4.82 M/mm3 (4.2-5.4); White Blood Count 5.5 K/mm3 (4.5-10.0)
[2025-07-06 09:45] LABS: Hemoglobin A1C 4.8 % (<5.7)
[2025-07-06 09:56] LABS: Alanine Aminotransferase 27 U/L (6-35); Albumin Level 4.1 g/dL (3.5-5.1); Alkaline Phosphatase 72 U/L (38-126); Anion Gap 6 mmol/L (4-12); Aspartate Amino Transferase 29 U/L (14-36); Bilirubin,Total 0.5 mg/dL (0.2-1.3); Blood Urea Nitrogen 14 mg/dL (7-17); Calcium 9.5 mg/dL (8.4-10.2); Carbon Dioxide 28 mmol/L (22-30); Chloride 102 mmol/L (98-107); Cholesterol 157 mg/dL (0-200); Estimated Glomerular Filt Rate > 60; Glucose 97 mg/dL (65-110); HDL Direct 53 mg/dL; Potassium 4.3 mmol/L (3.4-5.0); Sodium 136 mmol/L (137-145); Total Protein 7.2 g/dL (6.3-8.2); Triglycerides 148 mg/dL (<150)
--- OUTSIDE RECORDS SUMMARY | 2025-07-06 09:59 | XMS_ITS | Clinical Summary ---
Author Organization [facility] [address] [place] [id number] Care Team Providers Care Cupola Operator Name Role Phone Alnoa Armstrong NP Primary Care Provider [phone] Allergies No known active allergies Medications escitalopram (LEXAPRO) 10 mg tablet 09/02/2024 Active rosuvastatin (CRESTOR) 20 mg tablet Take 1 tablet (20 mg total) by mouth daily 08/25/2024 Active metFORMIN (GLUCOPHAGE) 500 mg tablet 09/02/2024 Activ e buPROPion XL (WELLBUTRIN XL) 300 mg 24 hr tablet Take 1 tablet (300 mg total) by mouth every morning 08/30/2024 Active lisinopriL (PRINIVIL,ZESTR IL) 2.5 mg tablet 09/02/2024 Active Mounjaro 7.5 mg/0.5 mL pen injector 09/02/2024 Active cholecalciferol (VITAMIN D-3) 5,000 unit tablet Active risankizumab-rz aa (Skyrizi) 60 mg/mL solution Infuse into a venous catheter Active Active Problems Problem Noted Date Diagnosed Date Abnormal thyroid function test 10/06/2024 Assessment & Plan (10/06/2024 10:45 AM SLOT ATTENDANT): Abnormal thyroid function test 06/2024 Suspect low TSH probably due to biotin effect versus thyroiditis Patient currently off of biotin supplements Repeat thyroid function test include thyroid antibodies Further plans after reviewing patient's thyroid lab results if her thyroid function test comes back normal, patient is released from our care back to her PCP Surgical History Surgery Date Site/Laterality Comments SECTION TUMOR REMOVAL GALLBLADDER SURGERY Medical History Medical History Date Comments Diabetes Family History Medical History Relation Name Comments Cancer Brother Diabetes Father Heart attack Father Hypertension Mother Stroke Mother Relation Name Status Comments Brother Father Mother Social History Tobacco Use Types Packs/Day Years Used Date Smoking Tobacco: Former Cigarettes Comments Unknown Sex and Gender Information Value Date Recorded Sex Assigned at Not on file Legal Sex Female 5:39 AM SLOT ATTENDANT Gender Identity Not on file Sexual Orientation Not on file Obstetrics History Last Filed Vital Signs Vital Sign Reading Time Taken Comments Blood Pressure 122/82 10/06/2024 9:40 AM SLOT ATTENDANT Pulse 87 10/06/2024 9:40 AM SLOT ATTENDANT Temperature - - Respiratory Rate 16 10/06/2024 9:40 AM SLOT ATTENDANT Oxygen Saturation - - Inhaled Oxygen Concentration - - Weight 95.7 kg (211 lb) 10/06/2024 9:40 AM SLOT ATTENDANT Height 144.8 cm (4' 9) 10/06/2024 9:40 AM SLOT ATTENDANT Body Mass Index 45.66 10/06/2024 9:40 AM SLOT ATTENDANT Plan of Treatment Health Maintenance Due Date Last Done Comments Breast Cancer Screening-Mammogram 1961 Cervical Cancer Screening 1961 Colon Cancer Screening-Colonoscopy 1961 Depression Screening 1961 Hepatitis C Screening 1961 Hepatitis B Screening 1979 Regular Well Visit/Exam 18-64 1979 Zoster Vaccine (1 of 2) 2011 Covid-19 Vaccine (3 - Pfizer risk series) 02/24/2021 01/27/2021, 12/25/2020 Influenza Vaccine (#1) 2025 DTaP/Tdap/Td Vaccine (2 - Td or Tdap) 06/11/2028 06/11/2018 Pneumococcal vaccine <65 Aged Out No longer eligible based on patient's age to complete this topic Insurance [facility] Address: [place] [address] Care Teams Cupola Operator Relationship Specialty Start Date End Date Alona Armstrong NP PCP - General Nurse Practitioner 07/13/24
[2025-07-06 10:24] LABS: MALB Creatinine Ratio 223.5 mg/g (0-30)
[2025-07-06 10:31] LABS: Thyroid Stimulating Hormone 2.600 uIU/mL (0.465-4.680)
[2025-07-06 10:51] LABS: Vitamin B12 691.0 pg/mL (239-931)
== END 2025-07-06 09:00 | disposition home or self-care (01) ==
LOC: ANHLAB 09:02
PROVIDERS: PCP Family Medicine; Visit Provider Nurse Practitioner Family
DX: E11.65 Type 2 diabetes mellitus with hyperglycemia (principal); I10 Essential (primary) hypertension; E78.2 Mixed hyperlipidemia; F41.9 Anxiety disorder, unspecified; E55.9 Vitamin D deficiency, unspecified; R79.89 Other specified abnormal findings of blood chemistry; R63.5 Abnormal weight gain
CPT/HCPCS: 36415; 80053; 80061; 82043; 82306; 82607; 83036; 84443; 85027

== ENCOUNTER 2025-07-13 12:47 | Outpatient (CLI) | payer OTHER, SELFPAY ==
--- NOTE | ~2025-07-13 | XR_ITS ---
EXAMINATION: XR shoulder RT min 2V, 07/13/2025 13:03 CDT HISTORY: M79.629 - Pain in unspecified upper arm COMPARISON: No comparisons available. Findings: No acute fracture or malalignment. Moderate to severe degenerative changes Soft tissues unremarkable. Impression: No acute fracture or malalignment. Reviewed, dictated and finalized at location P. Impression: No acute fracture or malalignment.
== END 2025-07-13 12:48 | disposition home or self-care (01) ==
PROVIDERS: PCP Family Medicine; Visit Provider Nurse Practitioner Family
DX: M79.621 Pain in right upper arm (principal)
CPT/HCPCS: 73030

== ENCOUNTER 2025-08-04 10:51 | Emergency (ER) | payer OTHER, SELFPAY ==
--- NOTE | 2025-08-04 10:54 | ED.URI ---
HPI - URI/Sore Throat General Chief Complaint: Upper Respiratory Infection Stated Complaint: SINUS CONGESTION/COUGH Source: patient and RN notes reviewed Mode of arrival: ambulatory Limitations: no limitations History of Present Illness HPI Narrative: Patient is a 65-year-old female who presents to the [facility] with multiple complaints. Patient reports nasal congestion and drainage for the past week and half. States that she has also had a frequent nonproductive cough. She also reports sore throat. States that she gets similar symptoms once or twice a year that she is unable to kick on her own. She denies any chest pain or shortness of breath. Denies recent fevers. Related Data Home Medications ?Medication ?Instructions ?Recorded ?Confirmed ?Last Taken ?Type risankizumab-rzaa 150 mg/mL 150 mg subcut [id number] 04/21/23 07/05/25 Unknown History subcutaneous pen injector (Skyrizi) B-complex with vitamin C 1 cap PO DAILY 06/06/23 07/05/25 09/06/24 History Bacillus coagulans 10 billion cell 1 cell PO .QD 11/17/23 07/05/25 Unknown History capsule,delayed release (Probiotic (B. coagulans)) cholecalciferol (vitamin D3) 50 125 mcg PO DAILY 07/14/24 07/05/25 Unknown History mcg (2,000 unit) capsule finasteride 5 mg tablet mg PO 03/31/25 07/05/25 Unknown History ibuprofen 600 mg tablet mg PO PRN 03/31/25 07/05/25 Unknown History Held on 07/05/25. Instructions: .Provider Order Allergies Allergy/AdvReac Type Severity Reaction Status Date / Time No Known Allergies Allergy Verified 08/04/25 10:58 Review of Systems Review of Systems: CONSTITUTIONAL: Denies fever, chills, or sweats. EYES: Denies visual changes, redness, or discharge. ENT: Reports nasal congestion and sore throat CARDIOVASCULAR: Denies chest pain, palpitations, or edema. RESPIRATORY: Reports cough but denies dyspnea. GASTROINTESTINAL: Denies abdominal pain, nausea, vomiting, or diarrhea. GENITOURINARY: Denies dysuria or hematuria. SKIN: Denies rash or itching. MUSCULOSKELETAL: Denies back pain, joint pain, or myalgia. NEUROLOGIC: Denies headache, numbness, or weakness. Pertinent positives per HPI. [facility] Past Medical History Medical History Lumbar paraspinal muscle spasm Bilateral primary osteoarthritis of knee Abnormal CT of the abdomen Acute bronchitis due to other specified organisms Acute sinusitis, unspecified Acute suppurative otitis media of right ear without spontaneous rupture of tympanic membrane Acute upper respiratory infection, unspecified Bilateral swelling of feet Body mass index (BMI) of 50-59.9 in adult (07/10/17) Candidiasis of skin Dietary counseling and surveillance (02/24/18) Edema of both feet Elevated fasting glucose Elevated sed rate Encounter for screening for respiratory tuberculosis (09/12/15) Encounter for surgical aftercare following surgery of digestive system Hyperglycemia Memory loss Morbid obesity due to excess calories Orthopnea Other psoriatic arthropathy Post-nasal drainage Prediabetes Routine physical examination Screening for thyroid disorder Sleep trouble Sore throat Stress Symptomatic cholelithiasis Upper abdominal mass Vitamin D deficiency Subconjunctival hematoma Apnea Psoriasis Obesity due to excess calories Mixed hyperlipidemia Edema Surgical History Surgical History Previous back surgery fatty tumors removed from back H/O gynecological procedure diagnostic hysteroscopy; uterine curetting; hysteroscopic polyectomy History of tubal ligation laparoscopic tubal ligation; NovaSure endometrial ablation Previous section Family History Family History Mother Hypertension Staph infection Sibling Carcinoma of colon Family history of cardiovascular disease Heart disease Pacemaker Father Family history of coronary artery disease Diabetes mellitus Acute myocardial infarction Other Cerebrovascular accident Social History Social History Smoking status: Former smoker Tobacco type: cigarettes Second hand tobacco smoke exposure: Yes Alcohol intake: never Substance use: never Substance use type: does not use Do You Feel Safe in your Home?: Yes Lack of Transportation: No Lack of Food: Never True Current Housing: I Have Housing Concerned About Future Housing: No Difficulty Paying Gas/Electric Bills: No Difficulty Paying for Meds: No Currently Unemployed: No Education: High School Diploma/GED Difficulty w/ Childcare or Family Care: No Living arrangements: alone Occupation/Education: occupation 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 There is no relevant family history pertinent to the patient complaint. Exam Narrative: GENERAL: This is a well-nourished, well-developed patient, in no apparent distress. HEAD: normocephalic, atraumatic. EYES: Sclera clear/white. Vision is grossly intact. EARS: External ears normal, auditory canals clear and without drainage, TMs normal without perforation. Hearing grossly intact. NOSE: External nose normal. Nasal congestion. Sinus tenderness. THROAT: Mucous membranes moist, Oropharyngeal erythema. NECK: Neck supple, non-tender without lymphadenopathy, masses or thyromegaly. CARDIOVASCULAR: Regular rate and rhythm without murmurs, gallops, or rubs. RESPIRATORY: Clear to auscultation. Breath sounds equal bilaterally. No wheezes, rales, or rhonchi. GASTROINTESTINAL: Abdomen soft, non-tender, nondistended. Bowel sounds are active. No hepato-splenomegaly, or palpable masses. No guarding. SKIN: warm, intact with no suspicious lesions or rash, good texture and turgor. NEURO: awake, alert, and oriented to person, place and time. There were no obvious focal neurologic abnormalities. Course Course Level of Care: Express Care Visit Vital Signs Vital signs: Reviewed MDM - URI/Sore Throat MDM Narrative Medical decision making narrative: Go to the ER for any new or worsening symptoms. Avoid smoking/second-hand smoke. Continue to take Tylenol or Motrin for pain. Increase your Vitamin C intake. Use a humidifier or vaporizer at night. Take Medications as prescribed. Drink plenty of water. 8-10 glasses per day. Use flonase 2 times per day for 5 days then as needed Take mucinex 2 times per day and be sure to take with 8oz of water. Follow up with Primary provider if not getting better. Differential Diagnosis Differential diagnosis: Likely upper respiratory infection, viral infection, bronchitis and pharyngitis Critical Care Time Critical Care Time Critical Care Time: No Discharge Plan Discharge Clinical Impression: Acute bacterial rhinosinusitis Patient Disposition: Home Condition: Stable Instructions: Antibiotic Form, Sinusitis (ED) Additional Instructions: Go to the ER for any new or worsening symptoms. Avoid smoking/second-hand smoke. Continue to take Tylenol or Motrin for pain. Increase your Vitamin C intake. Use a humidifier or vaporizer at night. Take Medications as prescribed. Drink plenty of water. 8-10 glasses per day. Use flonase 2 times per day for 5 days then as needed Take mucinex 2 times per day and be sure to take with 8oz of water. Follow up with Primary provider if not getting better. Patient Language: British Prescriptions: New amoxicillin-pot clavulanate 875-125 mg tablet 1 tablet PO Q12H 10 Days Qty: 20 0RF fluticasone propionate [Flonase Allergy Relief] 50 mcg/actuation spray,suspension 1 spray intranasal BID Qty: 16 0RF Rx Instructions: administer into each nostril benzonatate 100 mg capsule 100 mg PO BID PRN (Reason: cough) Qty: 20 0RF No Action Skyrizi 150 mg/mL pen injector 150 mg SUBCUT [id number] B-complex with vitamin C Capsule 1 cap PO DAILY Probiotic (B. coagulans) 10 billion cell capsule,delayed release(DR/EC) 1 cell PO .QD (DME) Dexcom G7 Onyx Chip Terrazzo Worker Misc See Rx Instructions .Route Qty: 1 0RF Rx Instructions: As directed cholecalciferol (vitamin D3) 50 mcg (2,000 unit) capsule 125 mcg PO DAILY finasteride 5 mg tablet PO ibuprofen 600 mg tablet PO PRN (DME) Dexcom G7 Sensor Device See Rx Instructions .ROUTE .COMPLEX Qty: 1 5RF Dose Instruction: USE DIRECTED Rx Instructions: USE DIRECTED metformin 500 mg tablet 500 mg PO DAILY Qty: 90 1RF rosuvastatin [Crestor] 20 mg tablet 20 mg PO DAILY Qty: 90 3RF lisinopril 5 mg tablet 5 mg PO DAILY Qty: 90 0RF bupropion HCl 300 mg tablet extended release 24 hr 300 mg PO QAM Qty: 90 1RF meloxicam 15 mg tablet 15 mg PO DAILY Qty: 30 0RF Mounjaro 10 mg/0.5 mL pen injector 10 mg subcut WEEKLY Qty: 2 2RF clobetasol 0.05 % ointment 1 applic topical BID Qty: 60 4RF Rx Instructions: apply topically BID for 2-4 weeks, then continue using 2-4x/month Follow-up/Referrals: Alona Armstrong, KEYBOARD INSTRUMENT REPAIRER, KILN BURNER [Primary Care Provider, [facility]] Time of Disposition: 11:03
[2025-08-04 11:01] VITALS: BP 152/76; PULSE 70; RESP 18; TEMP 36.5; O2SAT 96
== END 2025-08-04 11:07 | disposition home or self-care (01) ==
PROVIDERS: Emergency Provider Nurse Practitioner; PCP Nurse Practitioner Family
DX: J01.90 Acute sinusitis, unspecified (principal); R73.03 Prediabetes; E55.9 Vitamin D deficiency, unspecified; E78.2 Mixed hyperlipidemia; L40.9 Psoriasis, unspecified; E66.01 Morbid (severe) obesity due to excess calories; Z68.41 Body mass index [BMI] 40.0-44.9, adult
CPT/HCPCS: 99213; G0463

== ENCOUNTER 2025-09-06 10:02 | Outpatient (CLI) | payer OTHER, SELFPAY ==
--- OUTSIDE RECORDS SUMMARY | 2025-09-06 11:39 | XMS_ITS | Clinical Summary ---
Author Organization [facility] [address] [place] [id number] Care Team Providers Care Newspaper Subscription Solicitor Name Role Phone Alona Armstrong NP Primary Care Provider [phone] Allergies No known active allergies Medications escitalopram [...] 10/06/2024 Assessment & Plan (10/06/2024 10:45 AM EMAIL MARKETER): Abnormal thyroid function test 06/2024 Suspect low [...] on file Legal Sex Female 5:39 AM EMAIL MARKETER Gender Identity Not on file Sexual Orientation Not on file Last Filed Vital Signs Vital Sign Reading Time Taken Comments Blood Pressure 122/82 10/06/2024 9:40 AM EMAIL MARKETER Pulse 87 10/06/2024 9:40 AM EMAIL MARKETER Temperature - - Respiratory Rate 16 10/06/2024 9:40 AM EMAIL MARKETER Oxygen Saturation - - Inhaled Oxygen Concentration - - Weight 95.7 kg (211 lb) 10/06/2024 9:40 AM EMAIL MARKETER Height 144.8 cm (4' 9) 10/06/2024 9:40 AM EMAIL MARKETER Body Mass Index 45.66 10/06/2024 9:40 AM EMAIL MARKETER Plan of Treatment Health Maintenance Due Date [...] patient's age to complete this topic Insurance [facility] CHOICE PLUS Care Teams Newspaper Subscription Solicitor Relationship Specialty Start Date End Date Alona Armstrong NP PCP - General Nurse Practitioner 07/13/24
== END 2025-09-06 10:03 | disposition home or self-care (01) ==
PROVIDERS: PCP Nurse Practitioner Family
DX: L40.0 Psoriasis vulgaris (principal)
CPT/HCPCS: 86480

== ENCOUNTER 2025-09-12 08:20 | Emergency (ER) | payer OTHER, SELFPAY ==
[2025-09-12 08:36] VITALS: BP 147/76; PULSE 97; RESP 18; TEMP 36.8; O2SAT 99
--- NOTE | 2025-09-12 09:05 | ED.URI ---
HPI - URI/Sore Throat General Chief Complaint: Upper Respiratory Infection Stated Complaint: Cough Time Seen by Provider: 09/12/25 09:05 Source: patient and RN notes reviewed Mode of arrival: ambulatory Limitations: no limitations History of Present Illness HPI Narrative: [age] old female presents with concern for 3 day history of cough, tickle in her throat, general malaise, runny nose and postnasal drainage. She has been using Mucinex DM, at cough drops without relief. She denies known sick contacts. She has not taken her temperature but she feels generally achy unwell. MD elicited complaint: cough and sore throat Related Data Home Medications ?Medication ?Instructions ?Recorded ?Confirmed ?Last Taken ?Type risankizumab-rzaa 150 mg/mL 150 mg subcut [id number] 04/21/23 09/12/25 Unknown History subcutaneous pen injector (Skyrizi) B-complex with vitamin C 1 cap PO DAILY 06/06/23 09/12/25 09/06/24 History Bacillus coagulans 10 billion cell 1 cell PO .QD 11/17/23 09/12/25 Unknown History capsule,delayed release (Probiotic (B. coagulans)) cholecalciferol (vitamin D3) 50 125 mcg PO DAILY 07/14/24 09/12/25 Unknown History mcg (2,000 unit) capsule finasteride 5 mg tablet 5 mg PO 03/31/25 07/05/25 Unknown History ibuprofen 600 mg tablet mg PO PRN pain 03/31/25 07/05/25 Unknown History Held on 07/05/25. Instructions: .Provider Order Allergies Allergy/AdvReac Type Severity Reaction Status Date / Time No Known Allergies Allergy Verified 09/12/25 09:00 Review of Systems Review of Systems: CONSTITUTIONAL: Reports malaise. Denies chills, sweats, or fever. EYES: Denies visual changes, redness, or discharge. ENT: Reports rhinorrhea, scratchy throat. Denies congestion, sinus pain, otalgia and sore throat. CARDIOVASCULAR: Denies chest pain, palpitations, or edema. RESPIRATORY: Reports cough. Denies dyspnea. GASTROINTESTINAL: Denies abdominal pain, nausea, vomiting, diarrhea SKIN: Denies rash or itching. MUSCULOSKELETAL: Reports myalgia. NEUROLOGIC: Reports headache. All systems reviewed & are unremarkable except as noted in HPI and below PMFSH Past Medical History Medical History Lumbar paraspinal muscle spasm Bilateral primary osteoarthritis of knee Abnormal CT of the abdomen Acute bronchitis due to other specified organisms Acute sinusitis, unspecified Acute suppurative otitis media of right ear without spontaneous rupture of tympanic membrane Acute upper respiratory infection, unspecified Bilateral swelling of feet Body mass index (BMI) of 50-59.9 in adult (07/10/17) Candidiasis of skin Dietary counseling and surveillance (02/24/18) Edema of both feet Elevated fasting glucose Elevated sed rate Encounter for screening for respiratory tuberculosis (09/12/15) Encounter for surgical aftercare following surgery of digestive system Hyperglycemia Memory loss Morbid obesity due to excess calories Orthopnea Other psoriatic arthropathy Post-nasal drainage Prediabetes Routine physical examination Screening for thyroid disorder Sleep trouble Sore throat Stress Symptomatic cholelithiasis Upper abdominal mass Vitamin D deficiency Subconjunctival hematoma Apnea Psoriasis Obesity due to excess calories Mixed hyperlipidemia Edema Surgical History Surgical History Previous back surgery fatty tumors removed from back H/O gynecological procedure diagnostic hysteroscopy; uterine curetting; hysteroscopic polyectomy History of tubal ligation laparoscopic tubal ligation; NovaSure endometrial ablation Previous section Family History Family History Mother Hypertension Staph infection Sibling Carcinoma of colon Family history of cardiovascular disease Heart disease Pacemaker Father Family history of coronary artery disease Diabetes mellitus Acute myocardial infarction Other Cerebrovascular accident Social History Social History Smoking status: Former smoker Tobacco type: cigarettes Second hand tobacco smoke exposure: Yes Alcohol intake: never Substance use: never Substance use type: does not use Lack of Transportation: No Lack of Food: Never True Current Housing: I Have Housing Concerned About Future Housing: No Difficulty Paying Gas/Electric Bills: No Difficulty Paying for Meds: No Currently Unemployed: No Education: High School Diploma/GED Difficulty w/ Childcare or Family Care: No Living arrangements: alone Occupation/Education: occupation Additional occupation/education comments: marketing intern Gender identity (if verbalized by the patient): Female Sexual Orientation (if Verbalized by the Patient): Straight or Heterosexual Comments At time of signature, agree with nursing past medical, surgical, social and family history. There is no relevant family history pertinent to the presenting complaint Exam Narrative: GENERAL: Nontoxic-appearing, well-nourished, and in no acute distress. HEAD: Normocephalic EYES: PERRLA, conjunctivae clear ENT: Nares clear, clear discharge. Mucous membranes moist. TM pearly cruz with dull light reflex bilaterally; no tragal tenderness. Oropharynx not erythematous without lesions. Tonsils not enlarged and without exudate, no drooling, no hoarseness, no trismus, uvula midline. NECK: Supple. No lymphadenopathy CHEST: Clear to auscultation, breath sounds equal. No wheezing, rhonchi, rales, or stridor. No respiratory distress, speaks in full sentences. Cough noted HEART: Regular rate and rhythm. No murmur heard. SKIN: Warm, dry, no rash. NEURO: Alert and oriented x3. PSYCH: Normal mood and affect Course Course Emergency Course: Patient is aware of diagnosis, understands and agrees to treatment plan. Anticipatory guidance given. Patient agrees to follow-up as directed and is aware of reasons to seek care at the emergency department. Portions of this record may have been created with voice recognition software Level of Care: [facility] Visit MDM Differential Diagnosis Differential Diagnosis: I evaluated this patient in the [facility] care. History is obtained from patient who is an independent historian and physical exam was performed.? Available medical records were reviewed. ? Exam findings and relevant testing show no acute concerns or changes; patient is non-toxic appearing and is in no distress. ? Differential diagnosis considered: Calles virus, strep pharyngitis, allergic rhinitis, upper respiratory tract infection, sinusitis, rhinosinusitis, nasopharyngitis. viral pharyngitis, otitis media, otitis externa, pneumonia, bronchitis, viral cough syndrome, viral syndrome, and influenza. Differential diagnosis and treatment plan were discussed with the patient. Patient agrees with discussion and after shared medical decision making agrees with plan of care. All questions were answered to the patient's satisfaction. Patient is appropriate for outpatient treatment and follow-up. Discharge Plan Discharge Clinical Impression: Viral infection Patient Disposition: Home Condition: Stable Instructions: Viral Syndrome (ED) Additional Instructions: -Take strict precautions to prevent the spread of your virus. Be diligent about covering your cough (even when you are alone) and washing your hands frequently. -You may contagious until you have been symptom and/or fever free for 24 hours without fever reducing medicine -Alternate Ibuprofen and Tylenol for pain and fever relief (per package directions) -Some Cough medicines may make you drowsy, do not take it if you have to make important decisions, drive, or work. -Drink plenty of fluid - drink fluid with electrolytes such as Gatorade or other oral re-hydration solution. Avoid caffeine, which can make dehydration worse. -Get plenty of rest to help your body heal. -Use a cool mist humidifier for chest and nasal congestion. -Eat RAW honey or use cough drops to ease throat discomfort -Do not smoke or expose children to secondhand smoke -Wash your hands frequently. -Please follow-up with your primary care doctor in the next 1-2 days if your symptoms do not improve. -If you have any worsening of symptoms or any other concerns please go to the ED immediately. -Please take medications as prescribed and continue taking your home medications as usual. Patient Language: Romansh Prescriptions: New codeine-guaifenesin [Virtussin AC] 10-100 mg/5 mL liquid 5 ml PO Q6H PRN (Reason: cough) Qty: 120 0RF methylprednisolone [Medrol (Moises)] 4 mg tablets,dose pack See Rx Instructions .ROUTE .COMPLEX Qty: 21 0RF Rx Instructions: orally per package directions No Action Skyrizi 150 mg/mL pen injector 150 mg SUBCUT [id number] fluticasone propionate [Flonase Allergy Relief] 50 mcg/actuation spray,suspension 1 spray intranasal BID Qty: 16 0RF Rx Instructions: administer into each nostril B-complex with vitamin C Capsule 1 cap PO DAILY Probiotic (B. coagulans) 10 billion cell capsule,delayed release(DR/EC) 1 cell PO .QD (DME) Dexcom G7 Front Counter Clerk Misc See Rx Instructions .Route Qty: 1 0RF Rx Instructions: As directed cholecalciferol (vitamin D3) 50 mcg (2,000 unit) capsule 125 mcg PO DAILY finasteride 5 mg tablet 5 mg PO ibuprofen 600 mg tablet PO PRN (Reason: pain) (DME) Dexcom G7 Sensor Device See Rx Instructions .ROUTE .COMPLEX Qty: 1 5RF Dose Instruction: USE DIRECTED Rx Instructions: USE DIRECTED metformin 500 mg tablet 500 mg PO DAILY Qty: 90 1RF rosuvastatin [Crestor] 20 mg tablet 20 mg PO DAILY Qty: 90 3RF lisinopril 5 mg tablet 5 mg PO DAILY Qty: 90 0RF bupropion HCl 300 mg tablet extended release 24 hr 300 mg PO QAM Qty: 90 1RF Mounjaro 10 mg/0.5 mL pen injector 10 mg subcut WEEKLY Qty: 2 2RF clobetasol 0.05 % ointment 1 applic topical BID Qty: 60 4RF Rx Instructions: apply topically BID for 2-4 weeks, then continue using 2-4x/month meloxicam 15 mg tablet 15 mg PO DAILY Qty: 30 2RF Follow-up/Referrals: Be Guillen MD [Primary Care Provider, Family Practice] Time of Disposition: 09:14
[2025-09-12 09:23] LABS: EDCOVIDSCREEN Negative (Negative); EDINFLUASCREEN Negative (Negative); EDINFLUBSCREEN Negative (Negative); EDSTREPNEGPOS1 Negative (Negative)
== END 2025-09-12 09:20 | disposition home or self-care (01) ==
PROVIDERS: Emergency Provider Nurse Practitioner; PCP Family Medicine
DX: B34.9 Viral infection, unspecified (principal); Z20.822 Contact with and (suspected) exposure to COVID-19; R73.03 Prediabetes; E55.9 Vitamin D deficiency, unspecified; E66.01 Morbid (severe) obesity due to excess calories; Z68.41 Body mass index [BMI] 40.0-44.9, adult; L40.9 Psoriasis, unspecified; E78.2 Mixed hyperlipidemia; L40.59 Other psoriatic arthropathy; Z87.891 Personal history of nicotine dependence
CPT/HCPCS: 87081; 87426; 87804; 87880; 99213; G0463